=== PATIENT | male | born 1975 | race Caucasian/White ===

== ENCOUNTER → 2016-09-27 | Outpatient (CLI) | payer OTHER ==
--- NOTE | 2016-09-28 06:30 | PAP/PSG TECHNICIAN REPORT ---
[facility] Car Hopper Polysomnogram Report Study name: None Report date: 09/28/2016 Study date: 09/27/2016 Referring Physician: Dr. Grijalva Name: WARREN WANG Interpreting Physician: Robinson Grijalva D.O. Date of : 1975 Car Hopper: Adonay Medina RPSGT. Sex: Male Age: 40 StudyType: PSG Weight: 228 lbs Height: 40 years, Height 5' 10" BMI: 32.71 Medications: ARANESP 40 MCG/ML, VALIUM 5 MG, SUCRALFATE 1MG, CYCLOBENZAPRINE HCL 10 MG, DILAUDID 4 MG, FENTANYL 50 MCG/HR, ALBUTEROL SULFATE, ANORO ELLIPTA 62.5-25 MCG, VENTOLIN HFA 108 (90) BASE, ZOLOFT 100 MG, AMLODIPINE BESYLATE 10 MG, CORTEF 10 MG, POTASSIUM CHLORIDE, PROTONIX 40 MG, VITAMIN D, ZANTAC 150, ZOFRAN 4 MG Patient History PATIENT HAS HISTORY OF CHRONIC RESPIRATORY FAILURE, ASBESTOSIS, PULMONARY FIBROSIS, HYPERSOMNIA AND DIAPHRAGM DYSFUNCTION. HE CURRENTLY WEARS 4L/MIN OF SUPPLEMENTAL OXYGEN 10/01. HE IS HERE TODAY FOR AN EVALUATION OF [place]. ESS = 23 Parameters Monitored NPSG: E1-M2, E2-M1, Fp1-M2, Fp2-M1, F3-M2, F4-M2, F4-M1, C3-M2, C4-M2, C4-M1, O1-M2, O2-M2, O2-M1, T3-M2, T4-M1, P3-M2, P4-M1, CHIN1, CHIN2, HR, EKG, Legs, PFLOW, SNOR, FLOW, CFLOW, Tidal Volume, THOR, ABDO, SpO2, PLTH, CPRESS, ETCO2 Wave, ETCO2, pH Sleep Architecture Sleep Stages Time at Lights Off 8:44:00 PM STAGES Time (min.) TST (%) Time at Lights On 5:46:30 AM Wake 287.5 -- Total Recording Time (TRT) 543.00 min. N1 54.5 21 Total Sleep Period (TSP) 445.0 min. N2 200.5 79 Total Sleep Time (TST) 255.0min. N3 0.0 0 Awake Time 287.5 min. REM 0.0 0 Wake after Sleep Onset 190.0 min. Sleep Efficiency (SE) 47 % Sleep Onset Latency ([place]) 97.5 min. Number of Stage 1 Shifts None Awakenings 60 Stage Changes 182 Number of REM periods N/A REM 0.0 0 REM Latency NONE min. NREM 255.0 100 Body Position Analysis Supine Right Left Side Prone Vertical Total Sleep Time (min.) 191.7 222.0 0.0 222.03 0.0 0.0 Total Sleep Time (%) 13% 87% 0% 87 0% N/A% Total Sleep Time REM (min.) 0.0 0.0 0.0 None 0.0 0.0 Total Sleep Time NREM (min.) 33.0 222.0 0.0 None 0.0 0.0 Intermittent Wake (min.) 158.7 108.3 20.5 None 0.0 0.0 Total Sleep Period (%) 32% None None None None None Arousals Myoclonus (PLM) * Events Count Index Events Count Index Spontaneous 41 10 Events Awake (PLMW) 17 3.5 Respiratory 4 0.9 Events Asleep w/ Arousal (PLMA) 1 0.2 PLM 1 0 Events Asleep w/o Arousal (PLMS) 38 8.9 Snoring 13 3 Total Asleep 39 9.2 Total 59 14 Total 56 6 Respiratory Analysis * CA OA MA CH H RERA Total Count 9 0 0 0 15 2 24 Index 2.1 0.0 0.0 0 3.5 0 6.1 Mean Duration 13.2 0.0 0.0 0.00 14.4 16.8 14.2 Longest Duration 16.7 0.0 0.0 0.00 0.0 18.4 18.4 Respiratory Event Summary Total Supine ~Supine Right Left Prone REM NREM Apneas Count 9 0 9 9 N/A N/A N/A 9 Index 2.1 0 2 2.4 N/A N/A N/A 2 Hypopneas (4% Desat) Count 15 0 15 15 N/A N/A N/A 15 Index 3.5 0.0 4 4.1 N/A N/A N/A 3.5 Apneas & All Hypopneas Count 24 0 24 24 N/A N/A N/A 24 Index 5.6 0 6 6 N/A N/A N/A 5.6 Respiratory Events (Professor [employer]+All Hyp+RERA) Count 24 0 26 26 N/A N/A N/A 24 Index 6.1 0 7 7.0 N/A N/A N/A 6.1 Respiratory Related Arousal Count 4 0 4 4 N/A N/A N/A 4 Index 0.9 0 1 1 N/A N/A N/A 1 Snoring Analysis Supine Right Left Prone REM NREM Total Snore duration 19.9 min Snores count 156 657 N/A N/A N/A 813 813 Snore mean duration 1.5 Sec Snores index 284 178 N/A N/A N/A 191.3 191.3 TST with snoring (%) 7.8% Desaturation Event Summary: Minimum %SpO2 Event Count Mean/Min/Max Duration(sec.) Desaturation Index % Time In Bed > 90 0 N/A 0.0 9.4 86 - 90 7 12.0 / 5.8 / 18.0 4.4 18.0 81 - 85 24 11.9 / 5.5 / 56.8 9.0 30.0 76 - 80 12 16.2 / 6.3 / 56.8 3.6 37.5 71 - 75 0 N/A 0.0 4.8 66 - 70 0 N/A 0.0 0.3 61 - 65 0 N/A 0.0 0.0 56 - 60 0 N/A 0.0 0.0 51 - 55 0 N/A 0.0 0.0 < 50 0 N/A 0.0 0.0 Total REM NREM Awake <50% 0.0 min. 0.0 min. 0.0 min. 0.0 min. 51 - 60% 0.0 min. 0.0 min. 0.0 min. 0.0 min. 61 - 70% 1.8 min. 0.0 min. 0.9 min. 1.0 min. 71 - 80% 225.1 min. 0.0 min. 171.2 min. 53.9 min. 81 - 90% 255.7 min. 0.0 min. 42.7 min. 213.0 min. 91 - 100% 49.9 min. 0.0 min. 40.3 min. 9.6 min. Average 82 0 81 84 Minimum SpO2 64 N/A 64 66 Desaturation Event Index 3.8 0.0 6.8 1.3 # Desat. Events below 89% 34 N/A 29 5 Time(%) with Saturation below 89% 87.3 0.0 39.9 47.4 Time(min.) with Saturation below 89% 465.1 0.0 212.6 252.5 Time (mins) REM (mins) NREM (mins) % of TST SpO2 Below 90% 29 N/A N29 83.7 SpO2 Below 88% 6 0 0 83 Heart Rate Analysis Min (bpm) Max (bpm) Average (bpm) Awake 62 188 89 NREM 76 93 83 REM N/A N/A N/A Overall 76 93 83 Supplemental O2 Values Minimum O2 level: None Value Start Time End Time Car Hopper Comments Mr. Wang slept in the right, left and supine positions. No cardiac arrhythmia noted. Leg movements noted. No bruxism noted. Snoring was noted and scored as a 3 on a scale of 1 through 5. (0=no snoring, 5=snoring loud enough to be heard through a closed door or down the keen way) Mr. Wang awoke to use the restroom 1 time during the night. Mr. Wang stated I did not sleep as well as I do when I am in my own bed. Patient had many desaturations during the study but couldn't be scored as hypopnea's due to not meeting the requirement of a greater than 30% drop of pre-event baseline using a nasal pressure. Some hypopneas and central apneas were scored during the couple hours of sleep before I initiated 1l/min of supplemental oxygen. I initiated oxygen (3:11 am) because the patient's AHI was less than 10/hr and was not able to do a split-study. Also, the patient's oxygen ran in the 70's and 80's. While the patient was wearing oxygen no respiratory events were scored. I removed the 1l/min of supplemental oxygen by 3:55 am. I removed it because REM was not noted at that time and it's possible the patient could have more respiratory events. The final report will be interpreted and signed by a sleep physician. The completed physician report will then be placed in the patient medical record. Therapy (cm H2O) 0 TIB (min.) 542.5 TST (min.) 255.0 Sleep Onset (min.) 97.5 REM Onset From Sleep (min.) NONE Sleep Efficiency % 47 Wakefulness (%) 53 Wakefulness (min.) 287.5 NREM 1 (%) 21 NREM 1 (min.) 54.5 NREM 2 (%) 79 NREM 2 (min.) 200.5 NREM 3 (%) 0 NREM 3 (min.) 0.0 REM (%) 0 REM (min.) 0.0 # Arousals 59 Arousal Index 14 # Snore 813 Snore Index 191.3 AHI 5.6 AHI Supine 0 AHI Non-Supine 6 NREM AHI 5.6 REM AHI N/A RDI 6.1 # Obstructive Apnea 0 # Central Apnea 9 # Mixed Apnea 0 # Hypopneas 15 RERAs 2 Total Respiratory Events 27 Time Below SpO2 89% (min.) 212.6 Mean NREM SpO2 (%) 81 Mean REM SpO2 (%) N/A Mean Sleep SpO2 (%) 81 Min NREM SpO2 (%) 64 Min REM SpO2 (%) N/A Position Supine (min.) 191.7 Position Non-supine (min.) 222.0 LM Index Sleep 9.2 LM Index NREM 9.2 LM Index REM N/A Mean Heart Rate (bpm) 83 Min Heart Rate (bpm) 76
--- NOTE | 2016-10-02 14:29 | POLYSOMNOGRAPH REPORT ---
REFERRING PHYSICIAN: Pablo Crews, PCP [facility] CLINICAL DATA: The patient is a 40-year-old male with a BMI of 32.71. His complaints are those of snoring, excessive daytime somnolence, and disturbed nocturnal sleep. He has an [place] score of 23 out of a possible 24, suggesting severe daytime somnolence. He has a history of chronic respiratory failure. He is known to have diaphragm dysfunction. This was a diagnostic in-lab sleep study. SLEEP ARCHITECTURE: The total sleep period was 445.0 minutes. Total sleep time was 255.0 minutes. Sleep latency was severely reduced to 47%. The sleep onset latency was prolonged at 97.5 minutes. Wake after sleep onset was severely elevated at 190.0 minutes. Sleep consisted of stage N1 21% and stage N2 79%. There was no stage N3 sleep and no REM sleep. AROUSAL DATA: The patient had a total of 59 arousals including 41 spontaneous arousals, 4 respiratory arousals, 1 PLM arousal, and 13 snoring arousals. The arousal index was 14 events per hour. PLM DATA: The patient had a total of 39 periodic limb movements of sleep for a PLM index of 9.2 events per hour. There was only one arousal associated with limb movements for a PLM arousal index of 0.2. EKG: The underlying cardiac rhythm was normal sinus. The cardiac rates ranged from 76 to 93 beats per minute with an average of 83 beats per minute. There was a rare PA-C noted. RESPIRATORY DATA: The patient had a total of 24 respiratory events including 9 central apneas, and 15 hypopneas. The 4% rule was used for scoring hypopneas. The apnea hypopnea index was 5.6, which would reflect mild sleep apnea. The longest apnea was 16.7 seconds. In addition to the above, he had 2 RERAs. OXIMETRY DATA: The patient's average saturation was 82%. His minimum saturation was 64%. Much of the night was less than 90%. There was a total of 212.6 minutes with saturations less than 89%. OUTBOARD MOTORBOAT RIGGER COMMENTS: The patient slept in the right, left, and supine positions. No cardiac arrhythmia noted. Leg movements noted. No bruxism noted. The patient snored and the snoring was scored as a 3 on a scale of 1 through 5. The patient had many desaturations during the study but these could not be scored as hypopneas due to not meeting requirement of a greater than 30% drop of preevent baseline using nasal pressure. Oxygen was initiated for 1 liter per minute at 3:11 a.m. and the oxygen was removed at 3:55 a.m. IMPRESSIONS: 1. Obstructive sleep apnea -- mild. 2. Severe nocturnal hypoxia. 3. Insomnia. COMMENTS: The patient had a severely decreased sleep efficiency. He had a prolonged sleep onset latency of 97.5 minutes. He also had a marked increase in awake after sleep onset. He had no stage N3 or REM sleep and thus no deep sleep. The frequency of the apneas and hypopneas was mild. His apnea hypopnea index was only 5.6, which is mildly abnormal. It is notable that the patient does wear nocturnal oxygen at home. RECOMMENDATIONS: 1. Although the patient has mild sleep apnea, in light of his history of chronic respiratory failure and severe hypoxia a trial of nasal CPAP or BiPAP is advised. 2. Weight loss is suggested in light of the elevated BMI of 32.7. 3. If possible the patient should avoid sleeping in the supine position as typically there are more respiratory events and snoring in the supine position. 4. The patient for now should continue wearing his nocturnal oxygen. This can be reassessed after he is treated with nasal CPAP or BiPAP. RK
== END | disposition home or self-care (01) ==
LOC: C.NEUR 20:00
PROVIDERS: ATTEND Internal Medicine Pulmonary Disease
DX: G47.10 Hypersomnia, unspecified (principal); G47.30 Sleep apnea, unspecified

== ENCOUNTER → 2016-12-10 | Outpatient (CLI) | payer OTHER ==
--- NOTE | 2016-12-10 17:05 | DIAGNOSTIC IMAGING REPORT ---
CHEST 2 VIEWS ROUTINE CLINICAL HISTORY: J84.10 Pulmonary fibrosis COMPARISON STUDY: No previous studies for comparison. FINDINGS: Mild cardia megaly. Central catheter in superior vena cava. Findings of mild scattered parenchymal fibrotic change. Mild elevation right hemidiaphragm. IMPRESSION: Mild parenchymal fibrosis most likely chronic. No acute infiltrate. Mild cardiomegaly. Electronically signed by: Bebo Yo M.D. 12/10/2016 5:04 PM Dictated Date/Time: 12/10/2016 5:01 PM
== END | disposition home or self-care (01) ==
LOC: C.RAD1850 16:50
PROVIDERS: ATTEND Internal Medicine Pulmonary Disease
DX: J84.10 Pulmonary fibrosis, unspecified (principal)